=== PATIENT | female | born 1985 | race Two or more races ===

== ENCOUNTER 2021-09-19 09:46 | Emergency (ER) | payer OTHER ==
[~2021-09-19] VITALS: Ht 162.6 cm; Wt 79.4 kg
[2021-09-19] MEDS ORDERED: PRENATA CHEWAB1 EACH (10:04)
== END 2021-09-19 16:38 | disposition home or self-care (01) ==
LOC: ER 09:46
DX: O23.42 Unspecified infection of urinary tract in pregnancy, second trimester (principal); Z3A.15 15 weeks gestation of pregnancy; Z37.0 Single live birth

== ENCOUNTER 2021-11-08 12:42 | Outpatient (CLI) | payer OTHER ==
[~2021-11-08 12:42] MED LIST: PRENATA CHEWAB1 EACH
== END 2021-11-08 14:15 | disposition home or self-care (01) ==
LOC: PRENATAL 12:42
PROVIDERS: ATTEND Obstetrics & Gynecology Maternal & Fetal Medicine
DX: O35.0XX0 Maternal care for (suspected) central nervous system malformation in fetus, not applicable or unspecified (principal); O35.3XX0 Maternal care for (suspected) damage to fetus from viral disease in mother, not applicable or unspecified; Z3A.20 20 weeks gestation of pregnancy

== ENCOUNTER 2022-03-17 19:24 | Inpatient (IN) | payer OTHER | END 2022-03-20 11:11 | disposition home or self-care (01) | DRG 798 | LOC: OBS/DEL 19:24 → LDR 03-18 08:55 → OB/GYN 03-18 11:37 | PROVIDERS: ADMIT Obstetrics & Gynecology | PROC: 10E0XZZ Delivery of Products of Conception, External Approach (ICD-10-PCS; principal; 2022-03-18) | PROC: 0HQ9XZZ Repair Perineum Skin, External Approach (ICD-10-PCS; 2022-03-18) | PROC: 4A1HXCZ Monitoring of Products of Conception, Cardiac Rate, External Approach (ICD-10-PCS; 2022-03-18) | PROC: 0UB70ZZ Excision of Bilateral Fallopian Tubes, Open Approach (ICD-10-PCS; 2022-03-19) | DX: O70.0 First degree perineal laceration during delivery (principal); Z37.0 Single live birth; Z3A.39 39 weeks gestation of pregnancy; Z30.2 Encounter for sterilization; Z20.822 Contact with and (suspected) exposure to COVID-19 ==